=== PATIENT | male | born 1990 | race Caucasian/White ===

== ENCOUNTER 2019-02-24 19:25 | Emergency (ER) | payer MEDICAID ==
[~2019-02-24] VITALS: Ht 172.7 cm; Wt 99.8 kg
[2019-02-24 19:35] VITALS: BP 125/78
[2019-02-24 20:56] LABS: BASOPHILS % (AUTO) 0.6 % (0.0-2.0); EOSINOPHILS # (AUTO) 0.3 K/uL (0-0.4); EOSINOPHILS % (AUTO) 3.4 % (0.0-4.0); HEMATOCRIT 45.8 % (36-52); HEMOGLOBIN 15.3 g/dL (12.0-18.0); LYMPHOCYTES # (AUTO) 2.1 K/uL (2.0-11.5); LYMPHOCYTES % (AUTO) 27.4 % (20.5-51.1); MEAN CORPUSCULAR HEMOGLOBIN 29 pg (27-31); MEAN CORPUSCULAR HGB CONC 34 g/dL (33-37); MEAN CORPUSCULAR VOLUME 85.8 fL (80-94); MONOCYTES # (AUTO) 0.5 K/uL (0.8-1.0); NEUTROPHILS # (AUTO) 4.8 K/uL (1.8-7.7); NEUTROPHILS % (AUTO) 62.6 % (42.2-75.2); PLATELET COUNT (AUTO) 267 K/uL (140-450); RED BLOOD CELL COUNT(AUTO) 5.33 MIL/uL (4.20-6.10); RED CELL DISTRIBUTION WIDTH 13.3 % (11.6-13.7); WHITE BLOOD COUNT (AUTO) 7.7 K/uL (4.8-10.8)
[2019-02-24 21:17] LABS: ANION GAP 13.2 (8-16); CARBON DIOXIDE 28.6 mmol/L (21-32); CREATININE 1.1 mg/dL (0.7-1.3); POTASSIUM 4.8 mmol/L (3.5-5.1)
[2019-02-24 21:23] LABS: ALBUMIN 3.8 g/dL (3.4-5.0); TOTAL BILIRUBIN 0.4 mg/dL (0.0-1.0)
[2019-02-24 21:47] VITALS: BP 120/72
== END 2019-02-24 21:47 | disposition home or self-care (01) ==
LOC: MED 19:25
DX: R07.89 Other chest pain (principal); F17.210 Nicotine dependence, cigarettes, uncomplicated
CPT/HCPCS: 36415; 71045; 80053; 84484; 85025; 93005; 99284

== ENCOUNTER 2020-10-05 13:08 | Emergency (ER) | payer SELFPAY ==
[~2020-10-05] VITALS: Ht 172.7 cm; Wt 105.9 kg
[2020-10-05 13:15] VITALS: BP 131/90
[2020-10-05] MEDS ORDERED: DICYCLOMINE HCL LIQUID 20 MG, ALUMINUM HYD/MAG/SIMETHICONE 30 ML, LIDOCAINE VISCOUS 2% ... PO ONE ×3 (13:20)
[2020-10-05] MEDS ORDERED: NACL 0.9% 1,000 ML IV ONE (13:20)
--- NOTE | 2020-10-05 13:21 | NUR ---
PATIENT AMBULATED TO BED 12.
--- NOTE | 2020-10-05 13:27 | NUR ---
PANCHO GRANADO EVALUATING PATIENT AT BEDSIDE.
--- NOTE | 2020-10-05 13:40 | NUR ---
29 Y/O M BIB SELF FROM HOME, PATIENT PRESENTS TO ED WITH EPIGASTRIC PAIN. PT STATES PAIN STARTED YESTERDAY, C/O NAUSEA. DENIES HEADACHE, VOMITING, CONSTIPATION AND DIARRHEA. SKIN IS PINK/WARM/DRY; AAOX4 WITH EVEN AND STEADY GAIT; LUNGS CLEAR BL; HR EVEN AND REGULAR; PT DENIES ANY FEVER, CP, SOB, OR COUGH AT THIS TIME; PATIENT STATES PAIN OF 8/10 AT THIS TIME; VSS; PATIENT POSITIONED FOR COMFORT; HOB ELEVATED; BEDRAILS UP X2; BED DOWN. ER MD MADE AWARE OF PT STATUS. PMH: NONE NKA MED: NONE
[2020-10-05 13:47] LABS: BASOPHILS # (AUTO) 0.1 K/uL (0.00-0.22); EOSINOPHILS # (AUTO) 0.2 K/uL (0-0.4); EOSINOPHILS % (AUTO) 2.8 % (0.0-4.0); HEMATOCRIT 46.5 % (36-52); HEMOGLOBIN 15.8 g/dL (12.0-18.0); LYMPHOCYTES # (AUTO) 1.8 K/uL (2.0-11.5); LYMPHOCYTES % (AUTO) 24.9 % (20.5-51.1); MEAN CORPUSCULAR HEMOGLOBIN 29 pg (27-31); MEAN CORPUSCULAR HGB CONC 34 g/dL (33-37); MEAN CORPUSCULAR VOLUME 85.4 fL (80-94); MONOCYTES # (AUTO) 0.4 K/uL (0.8-1.0); MONOCYTES % (AUTO) 4.8 % (1.7-9.3); NEUTROPHILS # (AUTO) 4.8 K/uL (1.8-7.7); NEUTROPHILS % (AUTO) 66.5 % (42.2-75.2); PLATELET COUNT (AUTO) 228 K/uL (140-450); RED BLOOD CELL COUNT(AUTO) 5.44 MIL/uL (4.20-6.10); RED CELL DISTRIBUTION WIDTH 13.1 % (11.6-13.7); WHITE BLOOD COUNT (AUTO) 7.3 K/uL (4.8-10.8)
[2020-10-05] MEDS ORDERED: ALUMINUM HYD/MAG/SIMETHICONE 30 ML UDC ONE (13:49)
[2020-10-05] MEDS ORDERED: DICYCLOMINE HCL LIQUID 10 MG/5 ML UDC ONE (13:49)
[2020-10-05] MEDS ORDERED: LIDOCAINE VISCOUS 2% 20 ML UDC ONE (13:49)
[2020-10-05 13:53] LABS: ANION GAP 10.8 (8-16); POTASSIUM 3.8 mmol/L (3.5-5.1)
[2020-10-05 13:59] LABS: TOTAL BILIRUBIN 0.6 mg/dL (0.0-1.0)
[2020-10-05] MEDS ORDERED: MAG-27 PO (14:10)
[2020-10-05] MEDS ORDERED: OMEP20TC12 PO (14:10)
[2020-10-05] MEDS ORDERED: ACET-9800 PO (14:10)
[2020-10-05] MEDS ORDERED: KETOROLAC 30 MG/ML VIAL IVP ONE (14:15)
[2020-10-05 14:45] VITALS: BP 131/90
--- NOTE | 2020-10-05 14:46 | NUR ---
Patient discharged with v/s stable. Written and verbal after care instructions given and explained. Patient alert, oriented and verbalized understanding of instructions. Ambulatory with steady gait. All questions addressed prior to discharge. ID band removed. Patient advised to follow up with PMD. Rx of OMEPRAZOLE, ACETAMINOPHEN, MAG HYDROX given. Patient educated on indication of medication including possible reaction and side effects. Opportunity to ask questions provided and answered.
== END 2020-10-05 14:37 | disposition home or self-care (01) ==
LOC: MED 13:08
DX: K29.70 Gastritis, unspecified, without bleeding (principal); Z79.899 Other long term (current) drug therapy
CPT/HCPCS: 36415; 80053; 81002; 83690; 85025; 96361; 96374; 99283; J1885; J7030

== ENCOUNTER 2021-12-16 15:27 | Emergency (ER) | payer MEDICAID ==
[~2021-12-16] VITALS: Ht 172.7 cm; Wt 104.3 kg
[~2021-12-16 15:27] MED LIST: ACET-9800 PO; MAG-27 PO; OMEP-278 PO
[2021-12-16 15:37] VITALS: BP 147/99
--- NOTE | 2021-12-16 15:58 | NUR ---
Venecia colunga in [facility] - 12/16/21 at 1558 by [email or web address] Patient being evaluated by PANCHO CATHERINE at bedside.
--- NOTE | 2021-12-16 15:58 | NUR ---
Patient being evaluated by PANCHO CATHERINE at TRIAGE ROOM.NO NURSING INTERVENTION NEEDED, SEEN & TREATED BUY PANCHO CATHERINE.
[2021-12-16 16:00] VITALS: BP 147/99
[2021-12-16] MEDS ORDERED: OFLO5SOL27 LEFT EAR (16:01)
--- NOTE | 2021-12-16 16:01 | NUR ---
Patient discharged with v/s stable. Written and verbal after care instructions given and explained. Patient alert, oriented and verbalized understanding of instructions. Ambulatory with steady gait. All questions addressed prior to discharge. ID band removed. Patient advised to follow up with PMD. Rx of FLOXIN OT given. Patient educated on indication of medication including possible reaction and side effects. Opportunity to ask questions provided and answered.
[2021-12-17] MEDS ORDERED: ACET-8386 PO (05:24)
== END 2021-12-16 16:01 | disposition home or self-care (01) ==
LOC: MED 15:27
DX: H60.91 Unspecified otitis externa, right ear (principal); Z79.2 Long term (current) use of antibiotics; Z79.899 Other long term (current) drug therapy
CPT/HCPCS: 99283

== ENCOUNTER 2021-12-17 04:10 | Emergency (ER) | payer MEDICAID ==
[~2021-12-17] VITALS: Ht 172.7 cm; Wt 104.3 kg
[~2021-12-17 04:10] MED LIST changes: +OFLO5SOL27 LEFT EAR
[2021-12-17 04:15] VITALS: BP 142/88
--- NOTE | 2021-12-17 04:19 | NUR ---
Dr. Maldonado examining patient.
--- NOTE | 2021-12-17 04:22 | NUR ---
Patient ambulated to bed 3.
--- NOTE | 2021-12-17 04:32 | NUR ---
received in bed 3 with oC/O right ear pain x 1 day. Patient reported, had right ear pain since yesterday, seen by CALLI yesterday, Rx Ofloxin OT, no relief. PMHx: DENIES
[2021-12-17] MEDS ORDERED: KETOROLAC 30 MG/ML VIAL IM ONE ×2 (05:10)
[2021-12-17] MEDS ORDERED: KETOROLAC 30 MG/ML VIAL ONE (05:11)
[2021-12-17] MEDS ORDERED: ACET-8386 PO (05:24)
[2021-12-17 05:35] VITALS: BP 142/88
--- NOTE | 2021-12-17 05:35 | NUR ---
Patient discharged with v/s stable. Written and verbal after care instructions given and explained. Patient alert, oriented and verbalized understanding of instructions. Ambulatory with steady gait. All questions addressed prior to discharge. ID band removed. Patient advised to follow up with PMD. Rx of HYDROCODONE given. Patient educated on indication of medication including possible reaction and side effects. Opportunity to ask questions provided and answered.
== END 2021-12-17 05:35 | disposition home or self-care (01) ==
LOC: MED 04:10
DX: H60.91 Unspecified otitis externa, right ear (principal); Z79.2 Long term (current) use of antibiotics; Z79.899 Other long term (current) drug therapy
CPT/HCPCS: 96372; 99283; J1885

== ENCOUNTER 2021-12-19 20:37 | Emergency (ER) | payer MEDICAID ==
[~2021-12-19] VITALS: Ht 170.2 cm; Wt 107.0 kg
[~2021-12-19 20:37] MED LIST changes: +ACET-8386 PO
[2021-12-19 21:05] VITALS: BP 126/91
--- NOTE | 2021-12-19 21:09 | NUR ---
patient to lobby
--- NOTE | 2021-12-19 23:49 | NUR ---
DIVINA HOBBS EXAMINING PATIENT
[2021-12-19] MEDS ORDERED: AMOX500C25 PO (23:57)
[2021-12-20 00:20] VITALS: BP 130/82
--- NOTE | 2021-12-20 00:20 | NUR ---
Patient discharged. Written and verbal after care instructions given and explained about Otitis Externa, and Otitis Media. Patient alert, oriented and verbalized understanding of instructions. Ambulatory with steady gait. All questions addressed prior to discharge. ID band removed. Patient advised to follow up with PMD. Rx of amoxicillin given. Form provided for patient. Patient educated on indication of medication including possible reaction and side effects. Opportunity to ask questions provided and answered.
== END 2021-12-20 00:20 | disposition home or self-care (01) ==
LOC: MED 20:37
DX: H60.91 Unspecified otitis externa, right ear (principal); H66.91 Otitis media, unspecified, right ear; Z79.899 Other long term (current) drug therapy
CPT/HCPCS: 99283

== ENCOUNTER 2021-12-23 10:18 | Emergency (ER) | payer MEDICAID ==
[~2021-12-23] VITALS: Ht 172.7 cm; Wt 107.0 kg
[~2021-12-23 10:18] MED LIST changes: +AMOX500C25 PO
[2021-12-23 10:22] VITALS: BP 127/76
--- NOTE | 2021-12-23 12:12 | NUR ---
31/M PRESENTS TO ED WITH C/O RIGHT EAR PAIN X1 WEEK. STATES BEING SEEN HERE THIS WEEK FOR SAME SYMPTOMS AND GIVEN RX OF ABX, STATED WAS TOLD TO RETURN IF SYMPTOMS DID NOT IMPROVE. DENIES COUGH, FEVERS.
[2021-12-23 12:27] VITALS: BP 131/71
--- NOTE | 2021-12-23 12:27 | NUR ---
Patient discharged with v/s stable. Written and verbal after care instructions ABOUT OTITIS EXTERNA AND OTITIS MEDIA given and explained. Patient verbalized understanding. Ambulatory with steady gait. All questions addressed prior to discharge. Advised to follow up with PMD.
== END 2021-12-23 12:27 | disposition home or self-care (01) ==
LOC: MED 10:18
DX: H66.91 Otitis media, unspecified, right ear (principal); Z79.2 Long term (current) use of antibiotics; Z79.891 Long term (current) use of opiate analgesic; Z79.899 Other long term (current) drug therapy
CPT/HCPCS: 99281

== ENCOUNTER 2022-12-11 20:27 | Emergency (ER) | payer MEDICAID ==
[~2022-12-11] VITALS: Ht 175.3 cm; Wt 104.3 kg
[~2022-12-11 20:27] MED LIST changes: -ACET-8386 PO; +ACET-8905 PO
[2022-12-11 20:31] VITALS: BP 144/85
--- NOTE | 2022-12-11 20:35 | NUR ---
pt to [facility] bautista steady gait.
[2022-12-11] MEDS ORDERED: AMOXIL/CLAVULANATE 875/125 MG 1 TAB PO ONE (21:20)
[2022-12-11] MEDS ORDERED: AMOX1TAB8 PO (21:20)
--- NOTE | 2022-12-11 21:39 | NUR ---
Patient discharged. Written and verbal after care instructions given and explained. Patient alert, oriented and verbalized understanding of instructions. Ambulatory with steady gait. All questions addressed prior to discharge. ID band removed. Patient advised to follow up with PMD. Rx of Amoxicillin given. Patient educated on indication of medication including possible reaction and side effects. Opportunity to ask questions provided and answered.
== END 2022-12-11 21:39 | disposition home or self-care (01) ==
LOC: MED 20:27
DX: H66.92 Otitis media, unspecified, left ear (principal); H72.92 Unspecified perforation of tympanic membrane, left ear; Z79.899 Other long term (current) drug therapy
CPT/HCPCS: 99283

== ENCOUNTER 2024-04-17 18:53 | Emergency (ER) | payer MEDICAID, OTHER ==
[~2024-04-17] VITALS: Ht 172.7 cm; Wt 104.3 kg
[~2024-04-17 18:53] MED LIST changes: +AMOX1TAB8 PO
[2024-04-17 19:51] VITALS: BP 128/78; PULSE 75; RESP 18; TEMP 98.1; O2SAT 100
[2024-04-17] MEDS ORDERED: AMOX500C25 PO (21:24)
[2024-04-17] MEDS ORDERED: IBUP-2213 PO ×2 (21:24→21:41)
== END 2024-04-17 21:30 | disposition home or self-care (01) ==
LOC: MED 18:53
DX: J02.9 Acute pharyngitis, unspecified (principal); F12.90 Cannabis use, unspecified, uncomplicated; Z79.899 Other long term (current) drug therapy
CPT/HCPCS: 99283